=== PATIENT | male | born 1950 | race Caucasian/White ===

== ENCOUNTER → 2017-02-08 | Outpatient (CLI) | payer OTHER, MEDICARE | LOC: RAD 09:28 | PROVIDERS: ATTEND Clinical Nurse Specialist Adult Health | DX: R51 Headache (principal); M54.2 Cervicalgia; R20.0 Anesthesia of skin | CPT/HCPCS: 70551; 72141 ==

== ENCOUNTER → 2018-04-18 | Outpatient (CLI) | payer OTHER ==
--- NOTE | 2018-04-19 08:16 | RADIOLOGY REPORT (SQ) ---
EXAM DESCRIPTION: MRI LUMBAR SPINE WITHOUT COMPLETED DATE/TIME: 04/18/2018 5:55 pm REASON FOR STUDY: M51.26 OTHER INTERVERTEBRAL DISC DISPLACEMENT, LUMBAR REGION M51.26 OTHER INTERVE RTEBRAL DISC DISPLACEMENT, LUMBAR REGION COMPARISON: None. TECHNIQUE: Sagittal and Axial imaging includes T1, T2, STIR and gradient echo sequences. Coronal T2/ HASTE imaging. LIMITATIONS: Large body habitus FINDINGS: VISUALIZED UPPER ABDOMEN: Limited evaluation. No acute or suspicious findings suggested. SEGMENTATION: No transitional anatomy. The lowest well-developed disc space is labeled L5-S1. ALIGNMENT: Anatomic. VERTEBRAE: Intact. BONE MARROW: Normal. No marrow replacement or reactive changes. DISC SIGNAL: Diffuse decreased T2 weighted intervertebral disc signal. Disc space loss of height at L5-S1 POSTERIOR ELEMENTS: Generally intact. No pars defect evident. HARDWARE: None in the spine. CORD AND CONUS: Normal in size and signal intensity. Conus at the T12-L1 level. SOFT TISSUES: No aortic aneurysm seen. No bulky retroperitoneal adenopathy or mass. No paraspinal mas s or fluid. T11-12: At the very upper edge of the field of view. There is moderate bilateral facet hypertrophy with at least mild bilateral foraminal narrowing. Borderline central stenosis. T12-L1: No central or foraminal narrowing. L1-L2: No central or foraminal narrowing. Mild bilateral facet hypertrophy. L2-L3: Moderate central canal stenosis results from broad diffuse posterior disc bulging with a small central disc protrusion/ herniation along with moderate bilateral facet and ligament hypertrophy. T here is effacement of the CSF around the lumbar nerve roots best shown on axial T2 image 11 at sagitt al T2 image 9. Mild bilateral inferior foraminal narrowing is present without exiting L2 nerve root impingement. L3-L4: Broad diffuse posterior disc bulging and moderate bilateral facet and ligament hypertrophy cau ses mild to moderate central canal stenosis, with partial effacement of the CSF around the lumbar ner ve roots best shown on axial T2 image 18. Elsewhere at L3-4, high-grade right and left foraminal narrowing is present with partial effacement o f fat planes around the exiting L3 nerve roots. L4-L5: Broad diffuse posterior disc bulge and bony spurring and moderate bilateral facet and ligament hypertrophy is present. Mild central canal narrowing. Moderate right foraminal narrowing without d efinite right exiting L4 nerve root impingement. High-grade left foraminal narrowing with effacement of the fat around the exiting left L4 nerve root. L5-S1: No central stenosis. Moderate bilateral facet hypertrophy. High-grade bilateral foraminal na rrowing with effacement of the fat around the exiting L5 nerve roots bilaterally. SACRUM: Visualized upper sacrum intact. OTHER: No other significant findings. IMPRESSION: Significant lumbar central canal stenosis at L2-3 and L3-4. Multilevel significant foraminal narrowing in the lower lumbar spine. TECHNICAL DOCUMENTATION: JOB ID: [id number] [employer]- All Rights Reserved Reading location - IP/workstation name: [email or web address]-[email or web address]
== END ==
LOC: RAD 18:57
PROVIDERS: ATTEND Family Medicine
DX: M51.26 Other intervertebral disc displacement, lumbar region (principal); M48.061 Spinal stenosis, lumbar region without neurogenic claudication
CPT/HCPCS: 72148

== ENCOUNTER 2018-11-01 09:17 | Day surgery (SDC) | payer MEDICARE, OTHER ==
[2018-10-27 09:50] LABS: ABSOLUTE BASOPHILS # (AUTO) 0.1 10^3/uL (0.0-0.2); ABSOLUTE EOSINOPHILS # (AUTO) 0.5 10^3/uL (0.0-0.6); ABSOLUTE LYMPHOCYTES (AUTO) 1.3 10^3/uL (0.5-4.7); ABSOLUTE MONOCYTES (AUTO) 0.7 10^3/uL (0.1-1.4); ABSOLUTE NEUT (AUTO) 4.5 10^3/uL (1.7-8.2); BASOPHILS % (AUTO) 0.7 % (0-2); EOSINOPHILS % (AUTO) 6.6 % (0-6); HEMATOCRIT 41.4 % (37.9-51.0); HEMOGLOBIN 13.8 g/dL (13.5-17.0); MEAN CORPUSCULAR HGB CONC 33.3 g/dL (32.0-36.0); MEAN CORPUSCULAR VOLUME 93 fl (80-97); MONOCYTES % (AUTO) 9.7 % (3-13); PLATELET COUNT 218 10^3/uL (150-450); RED BLOOD COUNT 4.45 10^6/uL (4.35-5.55); RED CELL DISTRIBUTION WIDTH 15.8 % (11.5-14.0); TOTAL CELLS COUNTED % (AUTO) 100 %; WHITE BLOOD COUNT 7.1 10^3/uL (4.0-10.5)
[2018-10-27 09:54] LABS: PROTHROMBIN TIME 13.7 SEC (11.4-15.4)
[2018-10-27 09:55] LABS: PARTIAL THROMBOPLASTIN TIME 32.4 SEC (23.5-35.8)
[2018-10-27 09:58] LABS: APPEARANCE,URINE CLEAR; BILIRUBIN,URINE SMALL (NEGATIVE); COLOR,URINE YELLOW; GLUCOSE, URINE NEGATIVE (NEGATIVE); KETONES,URINE NEGATIVE (NEGATIVE); LEUKOCYTE ESTERASE,URINE NEGATIVE (NEGATIVE); NITRITE,URINE NEGATIVE (NEGATIVE); PROTEIN,URINE 100 mg/dL (NEGATIVE); URINE SPECIFIC GRAVITY 1.014
[~2018-11-01 09:17] MED LIST: CEFAZOLIN 1 GM/D5W RTU 1 GM/50 ML RTUPB IV PRN; LACTATED RINGERS 1000 ML IV PRN; LIDOCAINE 0.5% INJ-PF (5 MG/ML) 50 ML SDV SUBCUT PRN
[2018-11-01 10:50] LABS: INTERNATIONAL RATION (INR) 0.99; PROTHROMBIN TIME 13.6 SEC (11.4-15.4)
[2018-11-01 10:51] LABS: PARTIAL THROMBOPLASTIN TIME 31.1 SEC (23.5-35.8)
[2018-11-01] MEDS ORDERED: CEFAZOLIN 1 GM/D5W RTU 1 GM/50 ML RTUPB IV ONE (10:53)
[2018-11-01] MEDS ORDERED: TRIAMCINOLONE ACETONIDE INJ 40 MG/1 ML VIAL ONE (11:05)
[2018-11-01] MEDS ORDERED: LIDOCAINE 1% INJ-PF (10 MG/ML) 30 ML SDV ONE (11:05)
[2018-11-01 11:13] LABS: POTASSIUM 5.4 mmol/L (3.6-5.0)
[2018-11-01] MEDS ORDERED: LIDOCAINE 2% INJ-PF (20 MG/ML) 10 ML AMPUL ONE (11:37)
[2018-11-01] MEDS ORDERED: ONDANSETRON HCL INJ/PF 4 MG/2 ML SDV ONE (11:38)
[2018-11-01] MEDS ORDERED: FENTANYL CITRATE INJ/PF 100 MCG/2 ML AMPUL ONE (11:38)
[2018-11-01] MEDS ORDERED: PROPOFOL INJ 200 MG/20 ML VIAL IV ONE (11:38)
[2018-11-01] MEDS ORDERED: PROMETHAZINE HCL INJ 25 MG/1 ML VIAL ONE (11:38)
[2018-11-01] MEDS ORDERED: MIDAZOLAM 2 MG/2 ML INJ ONE (11:38)
[2018-11-01] MEDS ORDERED: HYDROMORPHONE HCL INJ/PF 2 MG/ML AMPULE ONE (11:40)
[2018-11-01 11:46] LABS: ANION GAP 8 (5-19); BLOOD UREA NITROGEN 12 mg/dL (7-20); CALCIUM 9.5 mg/dL (8.4-10.2); CARBON DIOXIDE 31 mmol/L (22-30); CHLORIDE 103 mmol/L (98-107); GLUCOSE 89 mg/dL (75-110); SODIUM 141.6 mmol/L (137-145)
[2018-11-01] MEDS ORDERED: DEXTROSE 50%-WATER 25 GM/50 ML DISP.SYRIN IV ONE ×2 (11:46→14:09)
[2018-11-01] MEDS: INSULIN REG, HUMAN 100 UNIT/ML 3 ML VIAL (PYX) ONE ×2 (11:55→12:50)
[2018-11-01] MEDS ORDERED: RINGERS SOLUTION,LACTATED 250 ML IV ONE (12:15)
[2018-11-01] MEDS ORDERED: EPHEDRINE SULFATE INJ 50 MG/1 ML AMPULE ONE (13:45)
[2018-11-01] MEDS ORDERED: METHYLPREDNISOLONE INJ 125 MG/2 ML SDV ONE (14:10)
[2018-11-01] MEDS ORDERED: DIPHENHYDRAMINE HCL 50 MG/ML VIAL IV PRN (14:30)
[2018-11-01] MEDS ORDERED: PROMETHAZINE HCL INJ 25 MG/1 ML VIAL IV PRN ×2 (14:30)
[2018-11-01] MEDS ORDERED: FENTANYL CITRATE INJ/PF 100 MCG/2 ML AMPUL IV PRN ×3 (14:30)
[2018-11-01] MEDS ORDERED: MEPERIDINE HCL/PF INJ 25 MG/1 ML DISP.SYRIN IV PRN (14:30)
[2018-11-01] MEDS ORDERED: MORPHINE SULFATE 10 MG/ML INJ IV PRN (14:30)
[2018-11-01] MEDS ORDERED: DEXTROSE 5%-LACTATED RINGERS 250 ML IV ONE (14:30)
[2018-11-01] MEDS ORDERED: ACETAMINOPHEN 1,000 MG/100 ML RTUPB IV ONE (14:50)
[2018-11-01] MEDS ORDERED: HYDROCODONE/ACETAMINOPHEN 5-325 MG TABLET PO PRN (15:49)
[2018-11-01] MEDS ORDERED: ONDANSETRON HCL INJ/PF 4 MG/2 ML SDV IV PRN (15:50)
[2018-11-01 18:27] VITALS: BP 136/75
--- NOTE | 2018-11-01 22:37 | OPERATIVE REPORT E ---
Operative Report NAME: GARETT STYLES : 1950 AGE: 68Y DATE OF SURGERY: 11/01/2018 ROOM: PREOPERATIVE DIAGNOSIS: LUMBAR SPINAL STENOSIS WITH NEUROGENIC CLAUDICATION. POSTOPERATIVE DIAGNOSIS: LUMBAR SPINAL STENOSIS WITH NEUROGENIC CLAUDICATION. PROCEDURES PERFORMED: 1. Minimally invasive lumbar decompression at L3-L4 and L4-L5. 2. Lumbar epidural steroid injection L3-L4. 3. Epiduroscopy at L3-L4 and L4-L5. SURGEON: SHELLY VICENTE M.D. ANESTHESIA: Local with sedation. ANTIBIOTICS: 1 gram Ancef given perioperatively. IV FLUIDS: 500 mL of balanced crystalloid solution. COMPLICATIONS: None. FINDINGS: Excellent improvement in epidural spread of contrast following procedure. OPERATIVE INDICATIONS: The patient is a very pleasant 68-year-old male with a progressive history of neurogenic claudication due to lumbar spinal stenosis. The patient has had good results with epidural injections, but they have been short-lived. He is determined based upon imaging review to be a candidate for minimally invasive lumbar decompression. Risks and benefits were discussed with the patient at length including, but not limited to bleeding, bruising, infection, injury to nerves, arteries, veins, loss of bowel or bladder function, paralysis, and potentially even . The patient agreed to proceed. OPERATIVE DETAILS: The patient was accompanied to the operative suite after informed consent was obtained. The patient was positioned in prone position. All pressure points checked and padded. Standard ASA lines and monitors were applied. The patient was prepped and draped in the sterile fashion using chlorhexidine gluconate solution and an [place] drape. Additionally a C-arm was prepped into the field. AP and oblique fluoroscopic views were utilized to determine L3-L4 interspace and L4-L5 interspace. The skin was anesthetized with 1% buffered lidocaine using a 25-gauge needle and deeper tissue was infiltrated with a spinal needle. An 18-gauge Tuohy needle was advanced using intermittent AP and oblique angulation fluoroscopy to the posterior epidural space at L3-L4 and L4-L5 levels. Access to the epidural space was gained using a loss of resistance technique to normal saline. Once loss was obtained contrast demonstrated posterior epidural flow with thin margins due to stenosis. This was at both levels. At this juncture AP fluoroscopy was utilized to confirm planned trocar placement on the right side. The trocar provided by the [employer] medical kit was introduced into the skin after skin anesthesia with 1% lidocaine and a small skin sara with a 15 blade scalpel. The trocar was advanced medial to the pedicles to the L4-L5 interspace first. Using oblique angulation fluoroscopy the trocar was advanced to just posterior to the lamina. A stabilizing device was placed around the trocar. The introducer was removed and a depth gauge was placed at 15 mm. A bone rongeur was advanced through the trocar using AP and oblique fluoroscopy to confirm angulation. Portions of lamina and ligament were removed using the bone rongeur. Both the inferior margin of the superior lamina and the superior margin of the inferior lamina at that level. After removal of substantial amounts of tissue a tissue sculpture was utilized to further clean the area between the lamina at L4-L5. When this was done to satisfactory levels the depth gauge and stabilizer were removed and the trocar introducer was replaced. The trocar was angled at a more shallow angle and was advanced to the L3-L4 interspace. Again the stabilizer and depth gauge were placed at 15 mm and bone rongeur utilized to scrape lamina and ligament and then the tissue sculpture subsequently used after that. At all times care was taken to not violate the posterior epidural space as outlined by epiduroscopy. Once this was completed on the right side attention was turned to the opposite side where the procedure was performed in the exact same fashion again using contralateral oblique fluoroscopic views. At the end of the procedure contrast and a volume of 5 mL was injected through the L4-L5 Tuohy epidural needle and increased spread was noted following procedure. The needle was removed to L4-L5 and 80 mg of Kenalog was injected through the Tuohy needle at the L3-L4 interspace and then this needle was removed. The skin was cleansed and the incision sites were closed with Steri-Strips and gauze and Tegaderm placed over top of those incision sites. Bandages were placed over the epidural puncture sites. The patient was accompanied to the postanesthesia recovery unit in stable condition. He will be discharged to home and will have postop within 24 hours. The patient tolerated the procedure well overall. DICTATING PHYSICIAN: SHELLY VICENTE M.D. [id number] Y#: [id number] ID: [id number] JOB#: [id number] ACCT: [id number] cc:SHELLY VICENTE M.D. >
--- NOTE | 2018-11-02 08:13 | RADIOLOGY REPORT (SQ) ---
EXAM DESCRIPTION: NO CHG FLUORO; L SPINE 2 VIEWS COMPLETED DATE/TIME: 11/01/2018 8:43 pm REASON FOR STUDY: MILD COMPARISON: None. FINDINGS: With fluoro time 11 seconds. Number of images: 8. Patient undergoing percutaneous spine injection, please correlate with operative note. TECHNICAL DOCUMENTATION: JOB ID: [id number] Reading location - IP/workstation name: [email or web address]
--- NOTE | 2018-11-02 08:13 | RADIOLOGY REPORT (SQ) ---
EXAM DESCRIPTION: NO CHG FLUORO; L SPINE 2 VIEWS COMPLETED DATE/TIME: 11/01/2018 8:43 pm REASON FOR STUDY: MILD COMPARISON: None. FINDINGS: With fluoro time 11 seconds. Number of images: 8. Patient undergoing percutaneous spine injection, please correlate with operative note. TECHNICAL DOCUMENTATION: JOB ID: [id number] Reading location - IP/workstation name: [email or web address]
== END 2018-11-01 17:40 | disposition home or self-care (01) ==
LOC: OROUT 09:17
PROVIDERS: ATTEND Pain Medicine Interventional Pain Medicine
DX: M48.062 Spinal stenosis, lumbar region with neurogenic claudication (principal); Z00.6 Encounter for examination for normal comparison and control in clinical research program; M51.37 Other intervertebral disc degeneration, lumbosacral region; M51.27 Other intervertebral disc displacement, lumbosacral region; M21.371 Foot drop, right foot; M47.27 Other spondylosis with radiculopathy, lumbosacral region; G89.4 Chronic pain syndrome; M47.816 Spondylosis without myelopathy or radiculopathy, lumbar region; M43.17 Spondylolisthesis, lumbosacral region; E78.5 Hyperlipidemia, unspecified; I10 Essential (primary) hypertension; M19.90 Unspecified osteoarthritis, unspecified site; F17.210 Nicotine dependence, cigarettes, uncomplicated; J43.9 Emphysema, unspecified; E66.9 Obesity, unspecified; Z86.73 Personal history of transient ischemic attack (TIA), and cerebral infarction without residual deficits; Z79.899 Other long term (current) drug therapy; Z79.891 Long term (current) use of opiate analgesic
CPT/HCPCS: 36415 ×2; 82962; 84132; 85025; 85610 ×2; 85730 ×2; 80048; 81001; 72100; 0275T; Q9966; J2250; J0690; J3490 ×4; J3010; A9270; J2550; J2405; J2704; J0131; 630; J1170; J1815; J2930